=== PATIENT | male | born 1950 | race African-American/Black ===

== ENCOUNTER 2016-10-26 13:23 | Inpatient (IN) | payer MEDICARE ==
[~2016-10-26] VITALS: Ht 180.3 cm; Wt 86.6 kg
[~2016-10-26 13:23] MED LIST: AMLO10TA80 PO; AMOLODIPINE
[2016-10-26] MEDS ORDERED: SODIUM CHLORIDE 0.9% 500 ML IV ONE (14:00)
[2016-10-26 14:56] LABS: BASOPHILS % 0.6 % (0.0-2.0); EOSINOPHILS % 1.1 % (0.0-5.0); HEMATOCRIT. 39.2 % (42.0-52.0); HEMOGLOBIN. 13.7 g/dL (14.0-18.0); LYMPHOCYTES % 14.7 % (20.0-50.0); MEAN CORPUSCULAR HEMOGLOBIN 32.9 pg (28.0-32.0); MEAN CORPUSCULAR VOLUME 94.3 fL (80.0-94.0); MEAN PLATELET VOLUME 7.9 fl (7.4-10.4); MONOCYTES % 6.1 % (2.0-8.0); NEUTROPHILS % 77.5 % (40.0-76.0); PLATELET 130 x1000/uL (130-400); RED BLOOD CELL COUNT 4.16 mill/uL (4.7-6.1); RED CELL DISTRIBUTION WIDTH 12.9 % (11.6-14.6)
[2016-10-26 15:00] LABS: CHLORIDE 108 mEq/L (98-107)
[2016-10-26 15:02] LABS: INR 1.2; PROTHROMBIN TIME 12.7 sec
[2016-10-26 15:07] LABS: CARBON DIOXIDE 27 mEq/L (21-32)
[2016-10-26 15:10] LABS: TROPONIN I < 0.02 ng/mL (0.00-0.04)
[2016-10-26 17:47] LABS: CLARITY URINE CLEAR (CLEAR); COLOR URINE YELLOW (YELLOW); GLUCOSE URINE NEGATIVE (NEGATIVE); KETONES URINE NEGATIVE (NEGATIVE); LEUKOCYTE ESTERASE URINE NEGATIVE (NEGATIVE); NITRITE URINE NEGATIVE (NEGATIVE); OCCULT BLOOD URINE NEGATIVE (NEGATIVE); PH URINE 7.5 (4.5-8.0); PROTEIN URINE 1+ (NEGATIVE); SPECIFIC GRAVITY URINE 1.016 (1.005-1.030)
[2016-10-26 17:57] LABS: *AMPHETAMINES SCREEN URINE NEGATIVE (NEGATIVE); *BARBITURATES SCREEN URINE NEGATIVE (NEGATIVE); *BENZODIAZEPINES SCREEN URINE NEGATIVE (NEGATIVE); *COCAINE SCREEN URINE NEGATIVE (NEGATIVE); CANNABINOID URINE SCREEN NEGATIVE (NEGATIVE); METHADONE URINE SCREEN NEGATIVE (NEGATIVE); OPIATES URINE SCREEN NEGATIVE (NEGATIVE); PHENCYCLIDINE URINE SCREEN NEGATIVE (NEGATIVE)
[2016-10-26 20:00] VITALS: BP 145/98
[2016-10-26] MEDS ORDERED: GUAIFENESIN 200MG/10ML SUGAR FREE UDC PO PRN (21:45)
[2016-10-26] MEDS ORDERED: NA PHOS,M-B/NA PHOS,DI-BA ENEMA 118ML PR PRN (21:45)
[2016-10-26] MEDS ORDERED: ACETAMINOPHEN 650MG SUPP PR PRN (21:45)
[2016-10-26] MEDS ORDERED: DIPHENHYDRAMINE 50MG/ML VIAL IV PRN (21:45)
[2016-10-26] MEDS ORDERED: ACETAMINOPHEN 325MG TABLET PO PRN (21:45)
[2016-10-26] MEDS ORDERED: ACETAMINOPHEN 650MG/20.3ML UDC GT PRN (21:45)
[2016-10-26] MEDS ORDERED: IPRATROPIUM/ALBUTEROL 0.5-3(2.5)MG/3ML NEB INH PRN (21:45)
[2016-10-26] MEDS ORDERED: ONDANSETRON HCL 4MG/2ML VIAL IV PRN (21:45)
[2016-10-26] MEDS ORDERED: MAGNESIUM/ALUMINUM HYDROXIDE/SIMETHICONE 30ML UDC PO PRN (21:45)
[2016-10-26] MEDS: MECLIZINE 25MG TABLET PO SCH (22:27)
[2016-10-26] MEDS: CLONIDINE 0.1MG TABLET PO PRN (22:27)
[2016-10-26] MEDS: DOCUSATE SODIUM 100MG CAPSULE PO PRN (22:27)
[2016-10-26] MEDS: HYDROCODONE/ACETAMINOPHEN 5/325MG TABLET PO PRN (22:28)
[2016-10-26] MEDS: SODIUM CHLORIDE 0.9% INJ 3ML FLUSH IVF SCH (22:29)
[2016-10-27] VITALS: BP_SYST 117; BP_SYST 125; BP_DIAS 68; BP_DIAS 88
[2016-10-27 04:00] VITALS: BP 128/87
[2016-10-27 05:10] LABS: BASOPHILS % 0.5 % (0.0-2.0); EOSINOPHILS % 2.7 % (0.0-5.0); HEMATOCRIT. 35.4 % (42.0-52.0); HEMOGLOBIN. 12.5 g/dL (14.0-18.0); LYMPHOCYTES % 29.2 % (20.0-50.0); MEAN CORPUSCULAR HEMOGLOBIN 33.2 pg (28.0-32.0); MEAN CORPUSCULAR VOLUME 93.8 fL (80.0-94.0); MEAN PLATELET VOLUME 8.4 fl (7.4-10.4); MONOCYTES % 6.8 % (2.0-8.0); NEUTROPHILS % 60.8 % (40.0-76.0); PLATELET 116 x1000/uL (130-400); RED BLOOD CELL COUNT 3.77 mill/uL (4.7-6.1); RED CELL DISTRIBUTION WIDTH 12.8 % (11.6-14.6)
[2016-10-27 05:49] LABS: CARBON DIOXIDE 24 mEq/L (21-32); CHLORIDE 107 mEq/L (98-107); HDL CHOLESTEROL 41 mg/dL (40-59); LDL CHOLESTEROL 78 mg/dL (5-100); PHOSPHORUS 2.9 mg/dL (2.5-4.9)
[2016-10-27] MEDS: MECLIZINE 25MG TABLET PO SCH ×3 (06:53→21:05)
[2016-10-27] MEDS: SODIUM CHLORIDE 0.9% INJ 3ML FLUSH IVF SCH ×3 (06:53→21:12)
[2016-10-27 08:00] VITALS: BP 144/97
[2016-10-27] MEDS: CLONIDINE 0.1MG TABLET PO PRN (09:08)
[2016-10-27 12:00] VITALS: BP 118/83
[2016-10-27 16:00] VITALS: BP 125/86
[2016-10-27 20:00] VITALS: BP 124/81
[2016-10-27] MEDS: DOCUSATE SODIUM 100MG CAPSULE PO PRN (21:12)
[2016-10-28] VITALS: BP 132/92
[2016-10-28 04:00] VITALS: BP 139/103
[2016-10-28] MEDS: MECLIZINE 25MG TABLET PO SCH ×2 (05:03→14:00)
[2016-10-28] MEDS: CLONIDINE 0.1MG TABLET PO PRN (05:04)
[2016-10-28] MEDS: SODIUM CHLORIDE 0.9% INJ 3ML FLUSH IVF SCH ×2 (05:04→14:00)
[2016-10-28 06:37] LABS: BASOPHILS % 0.6 % (0.0-2.0); EOSINOPHILS % 4.7 % (0.0-5.0); HEMATOCRIT. 38.1 % (42.0-52.0); HEMOGLOBIN. 13.2 g/dL (14.0-18.0); LYMPHOCYTES % 38.7 % (20.0-50.0); MEAN CORPUSCULAR HEMOGLOBIN 32.6 pg (28.0-32.0); MEAN CORPUSCULAR VOLUME 93.8 fL (80.0-94.0); MEAN PLATELET VOLUME 8.7 fl (7.4-10.4); MONOCYTES % 7.4 % (2.0-8.0); NEUTROPHILS % 48.6 % (40.0-76.0); PLATELET 125 x1000/uL (130-400); RED BLOOD CELL COUNT 4.06 mill/uL (4.7-6.1); RED CELL DISTRIBUTION WIDTH 12.9 % (11.6-14.6)
[2016-10-28] MEDS ORDERED: Meclizine Hcl PO (07:31)
[2016-10-28 08:00] VITALS: BP 135/84
[2016-10-28 08:01] LABS: PHOSPHORUS 2.4 mg/dL (2.5-4.9)
[2016-10-28] MEDS: DOCUSATE SODIUM 100MG CAPSULE PO PRN (08:43)
[2016-10-28] MEDS: HYDROCODONE/ACETAMINOPHEN 5/325MG TABLET PO PRN (08:44)
[2016-10-28 13:30] VITALS: BP 18/129
[2016-10-28] MEDS ORDERED: LACTULOSE 20G/30ML UDC PO PRN (13:45)
== END 2016-10-28 15:25 | disposition home or self-care (01) | DRG 304 ==
LOC: ER 13:34 → 8WST 16:17
PROVIDERS: ADMIT Family Medicine; ATTEND Family Medicine
DX: I16.1 Hypertensive emergency (principal); N17.0 Acute kidney failure with tubular necrosis; E44.1 Mild protein-calorie malnutrition; I12.9 Hypertensive chronic kidney disease with stage 1 through stage 4 chronic kidney disease, or unspecified chronic kidney disease; J44.9 Chronic obstructive pulmonary disease, unspecified; N18.9 Chronic kidney disease, unspecified; D53.9 Nutritional anemia, unspecified; E83.51 Hypocalcemia; G89.29 Other chronic pain; E86.0 Dehydration; E87.70 Fluid overload, unspecified; E87.8 Other disorders of electrolyte and fluid balance, not elsewhere classified; I25.10 Atherosclerotic heart disease of native coronary artery without angina pectoris; N40.0 Benign prostatic hyperplasia without lower urinary tract symptoms; Z68.26 Body mass index [BMI] 26.0-26.9, adult; Z79.899 Other long term (current) drug therapy; Z85.528 Personal history of other malignant neoplasm of kidney; Z86.73 Personal history of transient ischemic attack (TIA), and cerebral infarction without residual deficits
CPT/HCPCS: 36415; 70450; 70551; 71010; 76770; 80048; 80053; 80061; 80305; 81001; 82570; 83036; 83735; 83880; 84100; 84156; 84300; 84484; 85025; 85610; 93005; 93970; 99285; J1200; J7040; J8597

== ENCOUNTER 2017-07-20 01:25 | Emergency (ER) | payer MEDICARE ==
[~2017-07-20] VITALS: Ht 180.3 cm; Wt 84.0 kg
[~2017-07-20 01:25] MED LIST changes: +Meclizine Hcl PO
[2017-07-20 04:41] VITALS: BP 170/112
[2017-07-20 05:09] LABS: BASOPHILS % 0.6 % (0.0-2.0); EOSINOPHILS % 4.4 % (0.0-5.0); HEMATOCRIT. 37.4 % (42.0-52.0); HEMOGLOBIN. 12.8 g/dL (14.0-18.0); LYMPHOCYTES % 29.8 % (20.0-50.0); MEAN CORPUSCULAR HEMOGLOBIN 32.5 pg (28.0-32.0); MEAN CORPUSCULAR VOLUME 94.9 fL (80.0-94.0); MEAN PLATELET VOLUME 8.1 fl (7.4-10.4); MONOCYTES % 8.8 % (2.0-8.0); NEUTROPHILS % 56.4 % (40.0-76.0); PLATELET 152 x1000/uL (130-400); RED BLOOD CELL COUNT 3.94 mill/uL (4.7-6.1); RED CELL DISTRIBUTION WIDTH 12.7 % (11.6-14.6)
== END 2017-07-20 05:46 | disposition home or self-care (01) ==
LOC: ER 01:32
DX: J06.9 Acute upper respiratory infection, unspecified (principal); I11.9 Hypertensive heart disease without heart failure; Z85.528 Personal history of other malignant neoplasm of kidney
CPT/HCPCS: 36415; 71045; 80048; 85025; 87804; 99285

== ENCOUNTER 2018-02-01 03:14 | Emergency (ER) | payer MEDICARE ==
[~2018-02-01] VITALS: Ht 180.3 cm; Wt 86.0 kg
[2018-02-01] MEDS ORDERED: SODIUM CHLORIDE 0.9% 1,000 ML IV ONE (04:19)
[2018-02-01] MEDS ORDERED: DIPHENHYDRAMINE 50MG/ML VIAL IV ONE (04:30)
[2018-02-01] MEDS ORDERED: METOCLOPRAMIDE HCL 10MG/2ML VIAL IV ONE (04:30)
[2018-02-01 04:41] LABS: BASOPHILS % 0.7 % (0.0-2.0); EOSINOPHILS % 3.7 % (0.0-5.0); HEMOGLOBIN. 13.7 g/dL (14.0-18.0); LYMPHOCYTES % 30.5 % (20.0-50.0); MEAN CORPUSCULAR HEMOGLOBIN 33.4 pg (28.0-32.0); MEAN CORPUSCULAR VOLUME 95.1 fL (80.0-94.0); MEAN PLATELET VOLUME 7.9 fl (7.4-10.4); MONOCYTES % 6.3 % (2.0-8.0); NEUTROPHILS % 58.8 % (40.0-76.0); PLATELET 145 x1000/uL (130-400)
[2018-02-01 04:45] LABS: CHLORIDE 106 mEq/L (98-107); INR 1.2; PROTHROMBIN TIME 11.9 sec (9.1-11.1)
[2018-02-01 06:52] LABS: CLARITY URINE CLEAR (CLEAR); COLOR URINE YELLOW (YELLOW); KETONES URINE NEGATIVE (NEGATIVE); LEUKOCYTE ESTERASE URINE NEGATIVE (NEGATIVE); NITRITE URINE NEGATIVE (NEGATIVE); OCCULT BLOOD URINE NEGATIVE (NEGATIVE); PROTEIN URINE 2+ (NEGATIVE); SPECIFIC GRAVITY URINE 1.019 (1.005-1.030)
[2018-02-01 06:56] VITALS: BP 159/117
== END 2018-02-01 06:57 | disposition home or self-care (01) ==
LOC: ER 03:14
DX: R51 Headache (principal); I10 Essential (primary) hypertension; N28.9 Disorder of kidney and ureter, unspecified; I25.10 Atherosclerotic heart disease of native coronary artery without angina pectoris; Z79.899 Other long term (current) drug therapy
CPT/HCPCS: 36415; 70450; 80053; 81003; 85025; 85610; 93005; 96361; 96374; 96375; 99285; J1200; J2765; J7030

== ENCOUNTER 2018-02-26 04:56 | Emergency (ER) | payer MEDICARE ==
[~2018-02-26] VITALS: Ht 180.3 cm; Wt 86.0 kg
[2018-02-26] MEDS ORDERED: IBUPROFEN 800MG TABLET PO ONE (06:45)
[2018-02-26] MEDS ORDERED: AMLODIPINE 10MG TABLET PO ONE (06:45)
[2018-02-26 08:15] VITALS: BP 173/113
[2018-02-26] MEDS ORDERED: CLONIDINE 0.1MG TABLET PO ONE (08:45)
== END 2018-02-26 08:56 | disposition home or self-care (01) ==
LOC: ER 04:56
DX: S10.93XA Contusion of unspecified part of neck, initial encounter (principal); S30.0XXA Contusion of lower back and pelvis, initial encounter; I10 Essential (primary) hypertension; R51 Headache; Z79.899 Other long term (current) drug therapy; V49.88XA Car occupant (driver) (passenger) injured in other specified transport accidents, initial encounter; Y93.89 Activity, other specified; Y92.89 Other specified places as the place of occurrence of the external cause; Y99.8 Other external cause status
CPT/HCPCS: 72040; 72100; 99284

== ENCOUNTER 2019-03-12 23:18 | Emergency (ER) | payer MEDICARE ==
[~2019-03-12] VITALS: Ht 177.8 cm; Wt 89.0 kg
[2019-03-12 23:33] VITALS: BP 125/91
[2019-03-13] MEDS ORDERED: TETANUS, DIPHTHERIA, PERTUSSIS VAC/PF 0.5ML (>7YR OLD) IM ONE
== END 2019-03-13 00:35 | disposition home or self-care (01) ==
LOC: ER 23:18
DX: S91.141A Puncture wound with foreign body of right great toe without damage to nail, initial encounter (principal); I10 Essential (primary) hypertension; W26.8XXA Contact with other sharp object(s), not elsewhere classified, initial encounter; W45.8XXA Other foreign body or object entering through skin, initial encounter; Y93.9 Activity, unspecified
CPT/HCPCS: 73660; 90471; 90715; 99284

== ENCOUNTER 2021-04-13 12:35 | Emergency (ER) | payer MEDICARE ==
[~2021-04-13] VITALS: Ht 180.3 cm; Wt 86.0 kg
[2021-04-13] MEDS ORDERED: SODIUM CHLORIDE 0.9% 1,000 ML IV ONE (13:00)
[2021-04-13 13:13] LABS: BASOPHILS % 0.2 % (0.0-2.0); HEMATOCRIT. 35.4 % (42.0-52.0); HEMOGLOBIN. 12.2 g/dL (14.0-18.0); LYMPHOCYTES % 8.1 % (20.0-50.0); MEAN CORPUSCULAR HEMOGLOBIN 32.2 pg (28.0-32.0); MEAN CORPUSCULAR VOLUME 93.5 fL (80.0-94.0); MEAN PLATELET VOLUME 8.3 fl (7.4-10.4); MONOCYTES % 5.8 % (2.0-8.0); NEUTROPHILS % 85.9 % (40.0-76.0); PLATELET 136 x1000/uL (130-400); RED BLOOD CELL COUNT 3.78 mill/uL (4.7-6.1); RED CELL DISTRIBUTION WIDTH 12.8 % (11.6-14.6)
[2021-04-13 13:27] LABS: CHLORIDE 105 mEq/L (98-107)
[2021-04-13 14:45] LABS: CLARITY URINE CLEAR (CLEAR); COLOR URINE YELLOW (YELLOW); KETONES URINE NEGATIVE (NEGATIVE); LEUKOCYTE ESTERASE URINE NEGATIVE (NEGATIVE); NITRITE URINE NEGATIVE (NEGATIVE); OCCULT BLOOD URINE NEGATIVE (NEGATIVE); PROTEIN URINE 2+ (NEGATIVE); SPECIFIC GRAVITY URINE 1.017 (1.005-1.030); UROBILINOGEN URINE 0.2 E.U./dL (0.2-1.0)
[2021-04-13] MEDS ORDERED: CEFTRIAXONE 1 G PREMIX 50 ML IV ONE (17:00)
[2021-04-13] MEDS ORDERED: AZITHROMYCIN 500 MG in DEXT 5% WATER 250 ML IV SCH (17:00)
[2021-04-13] MEDS ORDERED: AZITHROMYCIN 500MG/250ML 250 ML IV NR (17:15)
[2021-04-13 20:00] VITALS: BP 175/110
== END 2021-04-13 20:37 | disposition admitted as inpatient to this hospital (09) ==
LOC: ER 12:50
DX: U07.1 COVID-19 (principal); I21.3 ST elevation (STEMI) myocardial infarction of unspecified site; I10 Essential (primary) hypertension
CPT/HCPCS: 36415; 71045; 80053; 81003; 84484; 85025; 87426; 87804; 96361; 96365; 96367; 99285; C1893; J0456; J0696; J7030; J7060